=== PATIENT | female | born 1960 | race Caucasian/White ===

== ENCOUNTER 2016-06-01 09:21 | Emergency (ER) | payer MEDICAID ==
[~2016-06-01] VITALS: Wt 69.0 kg
[2016-06-01] MEDS ORDERED: SOD CHLORIDE 0.9% 1,000 ML IV STA (09:32)
[2016-06-01] MEDS ORDERED: morphine 4 MG/ML VIAL IV STA (09:32)
[2016-06-01] MEDS ORDERED: ONDANSETRON 4 MG INJ IV STA (09:32)
[2016-06-01 10:04] LABS: BASOPHILS % 0.5 % (0.0-2.0); EOSINOPHILS # 0.1 10^3/ul (0.0-0.5); EOSINOPHILS % 1.6 % (0.0-7.0); HEMATOCRIT 23.3 % (37.0-47.0); LYMPHOCYTES # 3.5 10^3/ul (0.8-2.9); LYMPHOCYTES % 40.9 % (15.0-51.0); MEAN CORPUSCULAR HGB CONC 34.4 g/dl (32.0-37.0); MEAN CORPUSCULAR VOLUME 101.8 fl (82.0-101.0); MEAN PLATELET VOLUME 9.1 fl (7.4-10.4); MONOCYTE # 0.9 10^3/ul (0.3-0.9); MONOCYTES % 9.9 % (0.0-11.0); NEUTROPHIL # 4.1 10^3/ul (1.6-7.5); NEUTROPHILS % 47.1 % (39.0-77.0); PLATELET COUNT 90 10^3/UL (140-440); RED BLOOD COUNT 2.29 10^6/ul (4.20-5.40); RED CELL DISTRIBUTION WIDTH 16.3 % (11.5-14.5); UNCORRECTED WBC 8.6 10^3/ul (4.8-10.8); WHITE BLOOD COUNT 8.6 10^3/ul (4.8-10.8)
[2016-06-01 10:12] LABS: ALBUMIN 2.7 g/dl (3.3-4.9)
[2016-06-01 10:13] LABS: POTASSIUM 3.5 mmol/L (3.5-5.1)
[2016-06-01 10:15] LABS: ALBUMIN/GLOBULIN RATIO 0.96; BILIRUBIN,INDIRECT 1.2 mg/dl (0-1.1); BILIRUBIN,TOTAL 1.2 mg/dl (0.2-1.3); CONDITION 1; CREATININE 0.71 mg/dl (0.44-1.00); LH ANALYZER COMMENTS 1; TOTAL PROTEIN 5.5 g/dl (6.1-8.1)
[2016-06-01 10:23] LABS: ADD UMIC YES; URINE BILIRUBIN (Dip) NEGATIVE (NEGATIVE); URINE BLOOD (Dip) NEGATIVE (NEGATIVE); URINE COLOR LT. YELLOW (YELLOW); URINE GLUCOSE (Dip) NEGATIVE (NEGATIVE); URINE KETONES (Dip) NEGATIVE (NEGATIVE); URINE LEUKOCYTE ESTERASE (Dip) 1+ (NEGATIVE); URINE NITRITE (Dip) NEGATIVE (NEGATIVE); URINE TOTAL PROTEIN (Dip) NEGATIVE (NEGATIVE); URINE UROBILINOGEN (Dip) 0.2 E.U./dL (0.1-1.0)
[2016-06-01 10:27] LABS: TROPONIN-I 0.036 ng/ml (0.00-0.12)
[2016-06-01 10:36] LABS: BACTERIA,URINE FEW; SQUAMOUS EPITHELIAL CELL,UR MODERATE; URINE RBCS NONE SEEN /HPF (0)
--- NOTE | 2016-06-01 10:40 | RADRPT ---
PROCEDURE: US Abdomen. CLINICAL INDICATION: abdominal pain TECHNIQUE: Multiple real-time images were acquired of the patient's right upper quadrant abdomen a nd retroperitoneum utilizing a high resolution transducer. COMPARISON: None FINDINGS: The liver demonstrates increased echogenicity. The liver is normal in size and no focal solid lesio ns are seen. The liver measures 13 cm in length. The portal vein is patent with normal direction of flow. No intrahepatic biliary dilatation is seen. The patient is status post cholecystectomy. The common bile duct measures 14 mm in maximal dimension . The visualized portions of the pancreas are unremarkable. The tail of the pancreas is not seen. No free fluid is identified. The right kidney is normal in size, and demonstrate normal echogenicity and cortical thickness. The right kidney measures 10 cm in long dimension. There is no evidence of hydronephrosis. There are n o kidney stones. RPTAT: AA IMPRESSION: Mild fatty infiltration of the liver. Status post cholecystectomy. Dilated CBD measuring 14 mm. .Augie Atkins MD, MD Date Time Electronically viewed and signed by .Augie Atkins MD, on 06/01/2016 10:39 .S/
[2016-06-01] MEDS ORDERED: ONDA4TAB14 PO (10:56)
[2016-06-01] MEDS ORDERED: HYDR-902 PO (10:56)
[2016-06-01] MEDS ORDERED: NITR-58 PO (10:56)
--- NOTE | 2016-06-01 10:58 | ERD ---
ER Documentation Chief Complaint Date/Time DATE: 06/01/16 TIME: 10:58 Chief Complaint gen abd pain and distention for the past few days. nause and vomiting HPI Patient is a 55-year-old female with no medical problems who presents with abdominal pain and vomiting. She has upper abdominal pain which started on Monday. The pain is constant. The symptoms were worse today. She had no diarrhea and no fevers. She tried a pain medicine but vomited. She also tried Zofran and Nexium. Upon review of old medical records this is the patient's third visit to the ER since 2012. ROS All systems reviewed and are negative except as per history of present illness. Medications Home Meds Active Scripts Ondansetron (Ondansetron Odt) 4 Mg Tab.rapdis, 4 MG PO Q6H Y for NAUSEA AND/OR VOMITING, #30 TAB Prov:ELIGIO RIVERS MD 06/01/16 Hydrocodone/Acetaminophen ([place] 10-325 Tablet) 1 Each Tablet, 1 TAB PO Q6H Y for PAIN, #7 TAB Prov:ELIGIO RIVERS MD 06/01/16 Nitrofurantoin Monohyd Macrocr* (Macrobid*) 100 Mg Capsr, 100 MG PO BID for 7 Days, CAP Prov:ELIGIO RIVERS MD 06/01/16 Allergies Allergies: Coded Allergies: No Known Allergy (Unverified , 03/14/13) PMhx/Soc Medical and Surgical Hx: pt denies Medical Hx, pt denies Surgical Hx History of Surgery: No Anesthesia Reaction: No Hx Neurological Disorder: No Hx Respiratory Disorders: No Hx Cardiac Disorders: No Hx Psychiatric Problems: No Hx Miscellaneous Medical Probl: Yes (depression) Hx Alcohol Use: No Hx Substance Use: No Hx Tobacco Use: No Smoking Status: Never smoker FmHx Family History: No diabetes Physical Exam Vitals Vital Signs Date Time Temp Pulse Resp B/P Pulse Ox O2 Delivery O2 Flow Rate FiO2 06/01/16 12:21 98.2 75 19 126/76 100 Room Air 06/01/16 09:23 98.8 115 21 103/56 98 Physical Exam Const: No acute distress Head: Atraumatic Eyes: Normal Conjunctiva ENT: Normal External Ears, Nose and Mouth. Neck: Full range of motion..~ No meningismus. Resp: Clear to auscultation bilaterally Cardio: Regular rate and rhythm, no murmurs Abd: Soft, minimal epigastric tenderness to palpation without rebound or guarding Skin: No petechiae or rashes Back: No midline or flank tenderness Ext: No cyanosis, or edema Neur: Awake and alert Psych: Normal Mood and Affect Result Diagram: 06/01/1640 06/01/1640 Results 24 hrs Laboratory Tests Test 06/01/16 09:40 06/01/16 09:41 Alanine Aminotransferase (ALT/SGPT) 44IU/L Albumin 2.7g/dl Albumin/Globulin Ratio 0.96 Alkaline Phosphatase 109IU/L Anion Gap 13 Aspartate Amino Transf (AST/SGOT) 49IU/L Basophils # 0.010^3/ul Basophils % 0.5% Blood Morphology Comment Blood Urea Nitrogen 38mg/dl Calcium Level 10.0mg/dl Carbon Dioxide Level 34mmol/L Chloride Level 96mmol/L Creatinine 0.71mg/dl Direct Bilirubin 0.00mg/dl Eosinophils # 0.110^3/ul Eosinophils % 1.6% Globulin 2.80g/dl Glucose Level 132mg/dl Hematocrit 23.3% Hemoglobin 8.0g/dl Indirect Bilirubin 1.2mg/dl Lipase 115U/L Lymphocytes # 3.510^3/ul Lymphocytes % 40.9% Mean Corpuscular Hemoglobin 35.0pg Mean Corpuscular Hemoglobin Concent 34.4g/dl Mean Corpuscular Volume 101.8fl Mean Platelet Volume 9.1fl Monocytes # 0.910^3/ul Monocytes % 9.9% Neutrophils # 4.110^3/ul Neutrophils % 47.1% Nucleated Red Blood Cells # 0.010^3/ul Nucleated Red Blood Cells % 0.0/100WBC Platelet Count 9010^3/UL Potassium Level 3.5mmol/L Red Blood Count 2.2910^6/ul Red Cell Distribution Width 16.3% Sodium Level 139mmol/L Total Bilirubin 1.2mg/dl Total Protein 5.5g/dl Troponin I 0.036ng/ml White Blood Count 8.610^3/ul Urine Bacteria FEW Urine Bilirubin NEGATIVE Urine Clarity CLEAR Urine Color LT. YELLOW Urine Glucose NEGATIVE% Urine Hemoglobin NEGATIVE Urine Ketones NEGATIVE Urine Leukocyte Esterase 1+ Urine Microscopic RBC NONE SEEN/HPF Urine Microscopic WBC 2-5/HPF Urine Nitrite NEGATIVE Urine Specific [place] 1.010 Urine Squamous Epithelial Cells MODERATE Urine Total Protein NEGATIVE Urine Urobilinogen 0.2 E.U./dL Urine pH 7.0 Current Medications Medications (Trade) Dose Ordered Sig/Varsha Route PRN Reason Start Time Stop Time Status Last Admin Dose Admin Sodium Chloride (NS) 1,000 ml @ 1,000 mls/hr Q1H STAT IV 06/01/16 09:32 06/01/16 10:31 DC 06/01/16 09:56 Morphine Sulfate (morphine) 4 mg ONCE STAT IV 06/01/16 09:32 06/01/16 09:58 DC 06/01/16 09:56 Ondansetron HCl (Zofran Inj) 4 mg ONCE STAT IV 06/01/16 09:32 06/01/16 09:58 DC 06/01/16 09:56 Procedures/MDM EKG read by me: Rate/Rhythm: Regular rate and rhythm at a rate of 99 Intervals: Normal Impression: No evidence of ischemia or arrhythmia PROCEDURE: US Abdomen. CLINICAL INDICATION: abdominal pain TECHNIQUE: Multiple real-time images were acquired of the patient's right upper quadrant abdomen and retroperitoneum utilizing a high resolution transducer. COMPARISON: None FINDINGS: The liver demonstrates increased echogenicity. The liver is normal in size and no focal solid lesions are seen. The liver measures 13 cm in length. The portal vein is patent with normal direction of flow. No intrahepatic biliary dilatation is seen. The patient is status post cholecystectomy. The common bile duct measures 14 mm in maximal dimension. The visualized portions of the pancreas are unremarkable. The tail of the pancreas is not seen. No free fluid is identified. The right kidney is normal in size, and demonstrate normal echogenicity and cortical thickness. The right kidney measures 10 cm in long dimension. There is no evidence of hydronephrosis. There are no kidney stones. RPTAT: AA IMPRESSION: Mild fatty infiltration of the liver. Status post cholecystectomy. Dilated CBD measuring 14 mm. .Augie Atkins MD, MD Date Time Electronically viewed and signed by .Augie Atkins MD, on 06/01/2016 10: 39 Patient is a 55-year-old female presents with abdominal pain and vomiting. She has anemia with a hemoglobin of 8 but does not need transfusion at this time. Her LFTs and lipase are basically normal. She was found to have dehydration with a BUN creatinine ratio greater than 20 and she was given fluids IV. The patient was also given pain and nausea medicine in the emergency department and feels better. Her urinalysis shows acute cystitis and I will treat her with 1 week of Macrobid. At this point I doubt cholecystitis that she has had a cholecystectomy. I doubt pancreatitis, bowel obstruction, or appendicitis. I believe outpatient management is appropriate but the patient will need close follow-up with her primary doctor within 24-48 hours for reevaluation. She can return sooner for any worsening symptoms. She was given a copy of her laboratory studies and ultrasound report prior to discharge. Departure Diagnosis: Primary Impression: Cystitis Additional Impressions: Anemia Anemia type: unspecified type Qualified Code: D64.9 - Anemia, unspecified type Abdominal pain Abdominal location: unspecified location Qualified Code: R10.9 - Abdominal pain, unspecified location Condition: Fair Patient Instructions: Abdominal Pain, Anemia, Cystitis [facility] Usted se calabrese hecho un examen mdico de control que le indica que no est en melissa condicin que requiera tratamiento urgente en el Departamento de Emergencia. Un estudio ms profundo y el tratamiento de tanner condicin pueden esperar sin ningn riesgo hasta que usted sea atendida/o en el consultorio de tanner mdico o melissa cl pop. Es responsabilidad suya arreglar melissa juliet para el seguimiento del yvrose. MANEJO DE CONDICIONES NO URGENTES EN EL FUTURO 1) Si usted tiene un mdico de atencin primaria: Usted debera llamar a tanner mdico de atencin primaria antes de venir al departamento de emergencia. Despus de las horas de consultorio, tanner doctor o tanner asociado/a est disponible por telfono. El mdico o enfermero de joni en el servicio telefnico puede asesorarle por jian medio para atender el problema, o yvrose contrario se puede programar melissa juliet. 2) Si usted no tiene un mdico de atencin primaria: Llame al mdico o clnica de referencia que aparece abajo purvi las horas de consultorio para hacer melissa juliet para que le vean. CLINICAS: [facility] [phone] [facility] [phone] [place] [phone] [place] [id number] [phone] [facility]. [place] [address] [phone] [facility] [phone] [address] Additional Instructions: Visite a tanner mdico maana para un EXAMEN.Regrese a estas instalaciones si no se mejora lito esperbamos o lito le dijimos. ELIGIO RIVERS MD Jun 01, 2016 10:58
[2016-06-01 12:21] VITALS: BP 126/76; PULSE 75; RESP 19; TEMP 98.2
== END 2016-06-01 12:22 | disposition home or self-care (01) ==
LOC: E/R 09:21
DX: N30.90 Cystitis, unspecified without hematuria (principal); D64.9 Anemia, unspecified; R11.2 Nausea with vomiting, unspecified; R40.2112 Coma scale, eyes open, never, at arrival to emergency department
CPT/HCPCS: 36415; 76705; 80053; 81001; 83690; 84484; 85025; 93005; 96374; 96375; J2270; J2405; J7030; Z7502; 81003

== ENCOUNTER 2016-07-05 08:28 | Emergency (ER) | payer MEDICAID ==
[~2016-07-05] VITALS: Ht 157.5 cm; Wt 73.5 kg
[~2016-07-05 08:28] MED LIST: HYDR-902 PO; NITR-58 PO; ONDA4TAB14 PO
[2016-07-05 08:40] VITALS: Ht 157.5 cm; Wt 73.5 kg
[2016-07-05] MEDS ORDERED: BENZ100C70 PO (09:05)
[2016-07-05] MEDS ORDERED: D-ME473S18 PO (09:05)
--- NOTE | 2016-07-05 12:13 | ERD ---
DATE OF SERVICE: 07/05/2016 HISTORY OF PRESENT ILLNESS: The patient is a 55-year-old female coming in complaining of a cough an d congestion for 3 days. The patient states she has had a productive cough. She has taken NyQuil a nd DayQuil for the last 2 days. She has no shortness of breath, no chest pain. No history of pneum onia or asthma in the past. No sick contacts at home. PAST MEDICAL HISTORY: Denies medical problems. ALLERGIES TO MEDICATIONS: DENIES. PAST SURGICAL HISTORY: Cholecystectomy. SOCIAL HISTORY: Denies. REVIEW OF SYSTEMS: A 12-point review of systems was done. Refer to HPI for positives, all other sy stems negative. PHYSICAL EXAMINATION VITAL SIGNS: Temperature is 97.6, pulse 67, blood pressure is 148/73, respiratory rate 20, O2 satur ation 100% on room air. Pain intensity is 0/10. GENERAL: The patient is well-appearing, well-nourished, in no acute distress. HEENT: Atraumatic. Conjunctivae are pink. Pupils equal, round, and reactive to light. There is no s cleral icterus. Tympanic membranes clear bilaterally. Oropharynx clear. No nystagmus or photophobia . CHEST: Clear to auscultation bilaterally. There are no rales, wheezes or rhonchi. HEART: Regular rate and rhythm. No murmurs, clicks, rubs or gallops. No S3 or S4. ABDOMEN: Soft, nontender and nondistended. Good bowel sounds. No rebound or guarding. No gross lola tonitis. No gross organomegaly or masses. No Walters sign or McBurney point tenderness. SKIN: There is no apparent rash or petechia. The skin is warm and dry. DIAGNOSIS: Cough, likely viral. MEDICAL DECISION MAKING: I have low suspicion for pneumonia. Low suspicion for respiratory distres s or hypoxia. Low suspicion for sepsis. The patient's exams are within normal limits. The patient has an oxygen saturation of 100% on room air and does not have abnormal breath sounds heard on ausc ultation. I do not feel that there is indication for imaging or antibiotics. DISCHARGE: The patient is discharged stable. The patient is given prescription for promethazine DM and Tessalon and told to follow up with primary care within 1 to 2 days for reevaluation. The paulina ent was told if symptoms progress or worsen, to return to the ER. All other questions answered at t he time of discharge. Discharge summary given at the time of departure. The patient understood and complied with plan. Dictated By: VICTOR MANUEL LOPEZ for COLIN VERGARA/DANIEL Conf#: [id number] DID#: [id number]
== END 2016-07-05 09:10 | disposition home or self-care (01) ==
LOC: FTE 08:28
DX: R05 Cough (principal)
CPT/HCPCS: 99284

== ENCOUNTER 2016-08-07 00:26 | Emergency (ER) | payer MEDICAID ==
[~2016-08-07] VITALS: Ht 157.5 cm; Wt 73.0 kg
[~2016-08-07 00:26] MED LIST changes: +BENZ100C70 PO; +D-ME473S18 PO
[2016-08-07 00:29] VITALS: Ht 157.5 cm; Wt 73.0 kg
[2016-08-07] MEDS ORDERED: morphine 4 MG/ML VIAL IV STA (01:39)
[2016-08-07] MEDS ORDERED: ONDANSETRON 4 MG INJ IV STA (01:39)
[2016-08-07 01:42] VITALS: TEMP 97.9
[2016-08-07] MEDS ORDERED: FAMOTIDINE 20 MG INJ IV ONE (02:00)
[2016-08-07 02:10] LABS: ADD SCAN DIFF NO
[2016-08-07 02:12] LABS: BASOPHILS % 0.3 % (0.0-2.0); EOSINOPHILS # 0.2 10^3/ul (0.0-0.5); EOSINOPHILS % 2.2 % (0.0-7.0); HEMOGLOBIN 10.1 g/dl (12.0-16.0); LYMPHOCYTES # 1.3 10^3/ul (0.8-2.9); MEAN CORPUSCULAR HEMOGLOBIN 25.8 pg (29.0-33.0); MEAN CORPUSCULAR HGB CONC 30.6 g/dl (32.0-37.0); MEAN CORPUSCULAR VOLUME 84.4 fl (82.0-101.0); MEAN PLATELET VOLUME 9.9 fl (7.4-10.4); MONOCYTE # 0.6 10^3/ul (0.3-0.9); MONOCYTES % 5.5 % (0.0-11.0); NEUTROPHIL # 7.8 10^3/ul (1.6-7.5); NEUTROPHILS % 78.6 % (39.0-77.0); PLATELET COUNT 124 10^3/UL (140-415); RED BLOOD COUNT 3.91 10^6/ul (4.20-5.40); RED CELL DISTRIBUTION WIDTH 20.7 % (11.5-14.5); WHITE BLOOD COUNT 9.9 10^3/ul (4.8-10.8)
[2016-08-07 02:31] LABS: ALBUMIN 3.5 g/dl (3.3-4.9)
[2016-08-07 02:32] LABS: CHLORIDE 109 mmol/L (97-110); POTASSIUM 3.3 mmol/L (3.5-5.1); SODIUM 143 mmol/L (135-144)
[2016-08-07 02:34] LABS: ALBUMIN/GLOBULIN RATIO 0.94; ALKALINE PHOSPHATASE 224 IU/L (42-121); ANION GAP 16 (8-16); ASPARTATE AMINO TRANSFERASE 39 IU/L (15-46); BILIRUBIN,INDIRECT 0.7 mg/dl (0-1.1); BILIRUBIN,TOTAL 0.7 mg/dl (0.2-1.3); BLOOD UREA NITROGEN 16 mg/dl (7-20); CARBON DIOXIDE 21 mmol/L (21-31); CREATININE 0.53 mg/dl (0.44-1.00); TOTAL PROTEIN 7.2 g/dl (6.1-8.1)
[2016-08-07 02:35] LABS: ALANINE AMINOTRANSFERASE 32 IU/L (13-69); CALCIUM 8.5 mg/dl (8.4-10.2); GLUCOSE 148 mg/dl (70-220)
[2016-08-07 02:48] LABS: TROPONIN-I < 0.012 ng/ml (0.00-0.12)
[2016-08-07 02:54] LABS: INR 1.21; PROTIME 15.4 Sec (12.2-14.2); PT RATIO 1.2
[2016-08-07 02:55] LABS: PARTIAL THROMBOPLASTIN TIME 31.5 Sec (25.0-35.0)
--- NOTE | 2016-08-07 03:23 | RADRPT ---
PROCEDURE: XR Chest. CLINICAL INDICATION: Abdominal pain. TECHNIQUE: Single frontal view of the chest. COMPARISON: Plain film chest dated 07/07/2013. FINDINGS: Cardiomegaly and atherosclerotic calcifications in the thoracic aorta. Portable technique, patient body habitus and hypoinflated lungs accentuate pulmonary vascular markings. The lungs are otherwise clear. No signs of pleural fluid or pneumothorax are seen. The osseous structures and soft tissues a re unremarkable. IMPRESSION: No evidence for active cardiopulmonary disease. RPTAT: [facility]U Physician Megan Date Time Electronically viewed and signed by Physician Megan on 08/07/2016 03:22 RS/
--- NOTE | 2016-08-07 03:34 | RADRPT ---
PROCEDURE: CT Abdomen and pelvis without contrast. CLINICAL INDICATION: Abdominal pain. TECHNIQUE: CT scan of the abdomen and pelvis was performed on a multi-detector high-resolution CT scanner. Contiguous axial images were obtained from the lung bases to the ischial tuberosities wit hout intravenous contrast. Coronal and sagittal reformatted images were also obtained. Images were reviewed on the PACS workstation. One or more of the following dose reduction techniques were used: - Automated exposure control. - Adjustment of the mA and/or kV according to patient size. - Use of iterative reconstruction technique. Exam CTD/vol = 16.51 mGy. Total exam DLP = 876.06 mGy-cm. COMPARISON: None. FINDINGS: Evaluation of the lung bases demonstrates no pleural or parenchymal disease. Abdomen: The liver is normal in size with a diffuse nodular contour consistent with cirrhosis. The re is no focal mass or dilatation of the biliary tree. The patient is status post cholecystectomy. The spleen, pancreas and bilateral adrenal glands are within normal limits. Bilateral kidneys are normal in size with no contour deforming mass identified. There is no radiopaque renal or ureteral calculus identified. There is no hydronephrosis or hydroureter. There is no retroperitoneal adenop athy. The abdominal aorta is of normal caliber with mild scattered atherosclerotic calcifications. There is no abnormal bowel wall thickening or distension. There is no bowel obstruction or free air . A normal appendix is identified. There is no diverticulosis or diverticulitis. There is no asci graeme. Pelvis: The bladder is unremarkable. The uterus and adnexa are within normal limits. There is tra ce pelvic free fluid. There is no significant pelvic adenopathy. Evaluation of the osseous structures demonstrates no suspicious lytic or blastic lesion. There is in crease sclerosis surrounding bilateral sacroiliac joints. IMPRESSION: Cirrhotic liver. Status post cholecystectomy. Mild vascular calcifications reflective of atherosclerosis. Trace pelvic free fluid. Bilateral sacroiliitis. Otherwise no acute abnormality identified within the abdomen and pelvis. .Darryl Becerril MD, MD Date Time Electronically viewed and signed by .Darryl Becerril MD, MD on 08/07/2016 03:33 .T/
[2016-08-07 04:36] LABS: URINE BILIRUBIN (Dip) NEGATIVE (NEGATIVE); URINE BLOOD (Dip) NEGATIVE (NEGATIVE); URINE COLOR YELLOW (YELLOW); URINE GLUCOSE (Dip) NEGATIVE (NEGATIVE); URINE KETONES (Dip) TRACE (NEGATIVE); URINE LEUKOCYTE ESTERASE (Dip) NEGATIVE (NEGATIVE); URINE NITRITE (Dip) NEGATIVE (NEGATIVE); URINE UROBILINOGEN (Dip) 0.2 E.U./dL (0.1-1.0)
[2016-08-07 04:43] LABS: ADD UMIC NO; URINE TOTAL PROTEIN (Dip) NEGATIVE (NEGATIVE)
[2016-08-07] MEDS ORDERED: RANI150T9 PO (04:55)
[2016-08-07] MEDS ORDERED: HYDR-906 PO (04:55)
[2016-08-07] MEDS ORDERED: ONDA4TAB11 PO (04:55)
[2016-08-07] MEDS ORDERED: NAPR-688 PO (04:55)
[2016-08-07 05:03] VITALS: BP 132/71; PULSE 82; RESP 16
--- NOTE | 2016-08-07 05:07 | ERD ---
ER Documentation Chief Complaint Date/Time DATE: 08/07/16 TIME: 05:03 Chief Complaint RUQ abd pain radaiting to back since 4 hours ago HPI This 55-year-old female presents for right upper quadrant pain radiating to her back for 4 hours. She is also had nausea and vomiting. The vomiting is nonbloody and nonbilious. She has had no fevers and chills. She gets this every now and then. Is not related to food intake as far she knows. She has had her gallbladder removed years ago. She has no chest pain shortness of breath ROS All systems reviewed and are negative except as per history of present illness. Medications Home Meds Active Scripts Ranitidine Hcl* (Zantac*) 150 Mg Tablet, 150 MG PO BID Y for EPIGASTRIC PAIN, # 30 TAB Prov:JOSEPH PANG DO 08/07/16 Ondansetron (Zofran Odt) 4 Mg Tab.rapdis, 4 MG PO Q6, #20 Prov:JOSEPH PANG DO 08/07/16 Naproxen* (Naproxen*) 500 Mg Tablet, 500 MG PO BID, #20 TAB Prov:JOSEPH PANG DO 08/07/16 Hydrocodone/Acetaminophen ([place] 5-325 Tablet) 1 Each Tablet, 1 EACH PO Q6, #14 TAB Prov:JOSEPH PANG DO 08/07/16 Benzonatate* (Tessalon Perle*) 100 Mg Capsule, 100 MG PO TID, #30 CAP Prov:SAFIA JACKSON PA-C 07/05/16 Dextromethorphan Hb-Promethazine Hcl (Promethazine DM Syrup) 473 Ml Syrup, 5 ML PO Q6H Y for COUGH, #4 OZ Prov:SAFIA JACKSON PA-C 07/05/16 Ondansetron (Ondansetron Odt) 4 Mg Tab.rapdis, 4 MG PO Q6H Y for NAUSEA AND/OR VOMITING, #30 TAB Prov:ELIGIO RIVERS MD 06/01/16 Hydrocodone/Acetaminophen ([place] 10-325 Tablet) 1 Each Tablet, 1 TAB PO Q6H Y for PAIN, #7 TAB Prov:ELIGIO RIVERS MD 06/01/16 Nitrofurantoin Monohyd Macrocr* (Macrobid*) 100 Mg Capsr, 100 MG PO BID for 7 Days, CAP Prov:ELIGIO RIVERS MD 06/01/16 Allergies Allergies: Coded Allergies: No Known Allergy (Unverified , 03/14/13) PMhx/Soc History of Surgery: Yes (Csection, gallbladder) Anesthesia Reaction: No Hx Neurological Disorder: No Hx Respiratory Disorders: No Hx Cardiac Disorders: No Hx Psychiatric Problems: No Hx Miscellaneous Medical Probl: Yes (depression) Hx Alcohol Use: No Hx Substance Use: No Hx Tobacco Use: No Smoking Status: Never smoker Physical Exam Vitals Vital Signs Date Time Temp Pulse Resp B/P Pulse Ox O2 Delivery O2 Flow Rate FiO2 08/07/16 01:42 97.9 86 21 128/84 100 Room Air 08/07/16 00:29 98.5 102 20 165/80 100 Physical Exam Const: [] Head: Atraumatic Eyes: Normal Conjunctiva ENT: Normal External Ears, Nose and Mouth. Neck: Full range of motion..~ No meningismus. Resp: Clear to auscultation bilaterally Cardio: Regular rate and rhythm, no murmurs Abd: Soft, non tender, non distended. Normal bowel sounds Skin: No petechiae or rashes Back: No midline or flank tenderness Ext: No cyanosis, or edema Neur: Awake and alert Psych: Normal Mood and Affect Result Diagram: 08/07/16 0150 08/07/16 0150 Results 24 hrs Laboratory Tests Test 08/07/16 01:50 08/07/16 04:17 White Blood Count 9.910^3/ul Red Blood Count 3.9110^6/ul Hemoglobin 10.1g/dl Hematocrit 33.0% Mean Corpuscular Volume 84.4fl Mean Corpuscular Hemoglobin 25.8pg Mean Corpuscular Hemoglobin Concent 30.6g/dl Red Cell Distribution Width 20.7% Platelet Count 28473^3/UL Mean Platelet Volume 9.9fl Neutrophils % 78.6% Lymphocytes % 13.0% Monocytes % 5.5% Eosinophils % 2.2% Basophils % 0.3% Nucleated Red Blood Cells % 0.0/100WBC Neutrophils # 7.810^3/ul Lymphocytes # 1.310^3/ul Monocytes # 0.610^3/ul Eosinophils # 0.210^3/ul Basophils # 0.010^3/ul Nucleated Red Blood Cells # 0.010^3/ul Prothrombin Time 15.4Sec Prothrombin Time Ratio 1.2 INR International Normalized Ratio 1.21 Activated Partial Thromboplast Time 31.5Sec Sodium Level 143mmol/L Potassium Level 3.3mmol/L Chloride Level 109mmol/L Carbon Dioxide Level 21mmol/L Anion Gap 16 Blood Urea Nitrogen 16mg/dl Creatinine 0.53mg/dl Glucose Level 148mg/dl Calcium Level 8.5mg/dl Total Bilirubin 0.7mg/dl Direct Bilirubin 0.00mg/dl Indirect Bilirubin 0.7mg/dl Aspartate Amino Transf (AST/SGOT) 39IU/L Alanine Aminotransferase (ALT/SGPT) 32IU/L Alkaline Phosphatase 224IU/L Troponin I < 0.012ng/ml Total Protein 7.2g/dl Albumin 3.5g/dl Globulin 3.70g/dl Albumin/Globulin Ratio 0.94 Lipase 153U/L Urine Color YELLOW Urine Clarity CLEAR Urine pH 6.5 Urine Specific [place] 1.025 Urine Ketones TRACE Urine Nitrite NEGATIVE Urine Bilirubin NEGATIVE Urine Urobilinogen 0.2 E.U./dL Urine Leukocyte Esterase NEGATIVE Urine Hemoglobin NEGATIVE Urine Glucose NEGATIVE% Urine Total Protein NEGATIVE Current Medications Medications (Trade) Dose Ordered Sig/Varsha Route PRN Reason Start Time Stop Time Status Last Admin Dose Admin Morphine Sulfate (morphine) 4 mg ONCE STAT IV 08/07/16 01:39 08/07/16 01:42 DC 08/07/16 02:07 Ondansetron HCl (Zofran Inj) 4 mg ONCE STAT IV 08/07/16 01:39 08/07/16 01:42 DC 08/07/16 02:07 Famotidine (Pepcid Iv) 20 mg ONCE ONCE IV 08/07/16 02:00 08/07/16 02:01 DC 08/07/16 02:07 Procedures/MDM Right upper quadrant pain with cirrhotic liver the patient did not know she had. She has primary care follow-up but had never been told that she has liver problems. She does not have any elevated liver enzymes enzymes. Her pain was improved greatly in the emergency room with morphine and Pepcid. Her nausea was completely resolved with Zofran. She has no signs of infection. No signs of cardiac ischemia are elevated troponin. I am going to discharge her primary care follow-up as well as instructions to see a instructor dramatic arts for her liver cirrhosis as well as a possible EGD to rule out ulcer. No free air. Return precautions to the ER. CT abdomen pelvis interpretation: Cirrhotic liver, no obstruction, no free air, no fractures. EKG interpretation: Normal sinus rhythm rate of 80, prolonged QT, normal axis, no ST or T-wave changes concerning for acute ischemia Departure Diagnosis: Primary Impression: Cirrhosis of liver Additional Impression: Abdominal pain Condition: Stable Patient Instructions: Abdominal Pain, Cirrhosis of the Liver Additional Instructions: Llame al doctor EDIN y xiomy melissa [place] PARA DENTRO DE 1-2 ALMEIDA. Consigue un referral para un CONTRACT LOADER for liver and possible EGD. Dgale a la secretaria que nosotros le instruimos hacer esta israel.Avise o llame si tanner condicin se empeora antes de la is[place]. Regresa aqui si peor o no mejor. JOSEPH PANG DO Aug 07, 2016 05:06
== END 2016-08-07 05:25 | disposition home or self-care (01) ==
LOC: E/R 00:26
DX: K74.60 Unspecified cirrhosis of liver (principal)
CPT/HCPCS: 36415; 71010; 74176; 80053; 81003; 83690; 84484; 85025; 85610; 85730; 93005; 96374; 96375; J2270; J2405; Z7502; Z7610

== ENCOUNTER 2017-11-15 19:36 | Inpatient (IN) | END 2017-11-18 18:25 | disposition home or self-care (01) | DRG 919 ==

== ENCOUNTER 2018-02-14 20:17 | Emergency (ER) | END 2018-02-15 02:26 | disposition home or self-care (01) ==

== ENCOUNTER 2018-09-12 22:37 | Emergency (ER) | payer MEDICAID ==
[~2018-09-12] VITALS: Ht 157.5 cm; Wt 72.4 kg
[~2018-09-12 22:37] MED LIST changes: -BENZ100C70 PO; -D-ME473S18 PO; +DICY10CA40 PO; +ESOM40CA PO; -HYDR-902 PO; -NITR-58 PO
[2018-09-12 22:57] VITALS: Ht 157.5 cm; Wt 72.4 kg
[2018-09-13] MEDS ORDERED: SOD CHLORIDE 0.9% 500 ML IV ONE (02:29)
[2018-09-13] MEDS ORDERED: morphine 4 MG/ML VIAL IV ONE (02:29)
[2018-09-13] MEDS ORDERED: ONDANSETRON 4 MG INJ IV ONE (02:29)
[2018-09-13 09:50] VITALS: BP 118/61; PULSE 64; RESP 18
--- NOTE | 2018-10-02 02:45 | ERD ---
ER Documentation Chief Complaint Chief Complaint abd pain today; hx of liver cirrhosis HPI This is a 58-year female complains of abdominal pain. Patient has history of liver cirrhosis. She denies fevers chills nausea vomiting. Pain is mild to moderate intensity with no exacerbating alleviating factors. ROS All systems reviewed and are negative except as per history of present illness. Medications Home Meds Active Scripts Dicyclomine HCl (Dicyclomine HCl) 10 Mg Capsule, 10 MG PO TID PRN for ABDOMINAL CRAMPING, #20 CAP Prov:MEHREEN CARLSON MD 02/15/18 Allergies Allergies: Coded Allergies: No Known Allergy (Unverified , 09/13/18) PMhx/Soc Anesthesia Reaction: No Hx Neurological Disorder: No Hx Respiratory Disorders: No Hx Cardiac Disorders: No Hx Psychiatric Problems: Yes (DEPRESSION) Hx Miscellaneous Medical Probl: Yes (Liver alcoholic cirrhosis) Hx Alcohol Use: Yes (3 YEARS AGO) Hx Substance Use: No Hx Tobacco Use: No Smoking Status: Never smoker Physical Exam Physical Exam Const: No acute distress Head: Atraumatic Eyes: Normal Conjunctiva ENT: Normal External Ears, Nose and Mouth. Neck: Full range of motion. No meningismus. Resp: Clear to auscultation bilaterally Cardio: Regular rate and rhythm, no murmurs Abd: Soft, non tender, non distended. Normal bowel sounds Skin: No petechiae or rashes Back: No midline or flank tenderness Ext: No cyanosis, or edema Neur: Awake and alert Psych: Normal Mood and Affect Results 24 hrs Laboratory Tests Test 09/13/18 02:30 White Blood Count 5.2 10^3/ul Red Blood Count 4.22 10^6/ul Hemoglobin 13.7 g/dl Hematocrit 40.0 % Mean Corpuscular Volume 94.8 fl Mean Corpuscular Hemoglobin 32.5 pg Mean Corpuscular Hemoglobin Concent 34.3 g/dl Red Cell Distribution Width 13.6 % Platelet Count 70 10^3/UL Mean Platelet Volume 11.0 fl Immature Granulocytes % 0.400 % Neutrophils % 75.6 % Lymphocytes % 16.5 % Monocytes % 6.5 % Eosinophils % 0.6 % Basophils % 0.4 % Nucleated Red Blood Cells % 0.0 /100WBC Immature Granulocytes # 0.020 10^3/ul Neutrophils # 4.0 10^3/ul Lymphocytes # 0.9 10^3/ul Monocytes # 0.3 10^3/ul Eosinophils # 0.0 10^3/ul Basophils # 0.0 10^3/ul Nucleated Red Blood Cells # 0.0 10^3/ul Sodium Level 142 mmol/L Potassium Level 3.9 mmol/L Chloride Level 108 mmol/L Carbon Dioxide Level 25 mmol/L Anion Gap 9 Blood Urea Nitrogen 7 mg/dl Creatinine 0.52 mg/dl Est Glomerular Filtrat Rate mL/min > 60 mL/min Glucose Level 139 mg/dl Calcium Level 9.2 mg/dl Total Bilirubin 1.6 mg/dl Direct Bilirubin 0.00 mg/dl Indirect Bilirubin 1.6 mg/dl Aspartate Amino Transf (AST/SGOT) 42 IU/L Alanine Aminotransferase (ALT/SGPT) 32 IU/L Alkaline Phosphatase 220 IU/L Total Protein 7.5 g/dl Albumin 3.8 g/dl Globulin 3.70 g/dl Albumin/Globulin Ratio 1.02 Lipase 68 U/L Current Medications Medications Dose Sig/Varsha Start Time Status Last (Trade) Ordered Route PRN Stop Time Admin Dose Reason Admin Sodium 500 ml @ Q1H ONCE 09/13/18 DC 09/13/18 Chloride 500 mls/hr IV 02:29 09/13/18 02:38 03:28 Morphine 4 mg ONCE ONCE 09/13/18 DC 09/13/18 Sulfate IV 02:29 09/13/18 02:38 (morphine) 02:30 Ondansetron 4 mg ONCE ONCE 09/13/18 DC 09/13/18 HCl (Zofran IV 02:29 09/13/18 02:38 Inj) 02:30 Procedures/MDM Patient's gastrointestinal symptoms have stabilized while in the department. No evidence of severe dehydration, sepsis, or surgical abdomen. Extensive discussion with family and patient that occult disease cannot be ruled out. 8 hour recheck for repeat abdominal exam is planned. Departure Diagnosis: Primary Impression: Abdominal pain Abdominal location: unspecified location Qualified Codes: R10.9 - Unspecified abdominal pain Condition: Fair Patient Instructions: Abdominal Pain, Unknown Cause, (Female) TRENA CANTRELL Oct 02, 2018 02:45
== END 2018-09-13 10:05 | disposition home or self-care (01) ==
LOC: E/R 22:37
DX: R10.9 Unspecified abdominal pain (principal)
CPT/HCPCS: 36415; 74176; 76705; 80053; 83690; 85025; 96361; 96374; 96375; J2270; J2405; J7040; Z7502